=== PATIENT | female | born 1960 | race Caucasian/White ===

== ENCOUNTER 2021-03-10 06:39 | Day surgery (SDC) | payer BC ==
[~2021-03-10] VITALS: Ht 172.7 cm; Wt 106.9 kg
[2021-03-10 07:07] VITALS: BP 135/81
== END 2021-03-10 09:50 | disposition home or self-care (01) ==
LOC: OUT 06:39
PROVIDERS: ATTEND Internal Medicine
DX: C83.38 Diffuse large B-cell lymphoma, lymph nodes of multiple sites (principal); J45.909 Unspecified asthma, uncomplicated; I10 Essential (primary) hypertension; K21.9 Gastro-esophageal reflux disease without esophagitis; G47.33 Obstructive sleep apnea (adult) (pediatric); F41.9 Anxiety disorder, unspecified; F32.9 Major depressive disorder, single episode, unspecified; Z79.899 Other long term (current) drug therapy; Z90.49 Acquired absence of other specified parts of digestive tract
CPT/HCPCS: 36415; 38222; 77012; 85025; 85060; 85097; 88305; 88311; 99156; 99157; J2250; J3010; J7030